=== PATIENT | female | born 1990 | race Caucasian/White ===

== ENCOUNTER 2019-09-25 12:50 | Emergency (ER) | payer MEDICAID ==
[~2019-09-25] VITALS: Ht 160 cm; Wt 59.4 kg
[2019-09-25 13:22] VITALS: BP 132/80
[2019-09-25] MEDS ORDERED: PENI500T2 PO (14:15)
[2019-09-25] MEDS ORDERED: IBUP-1984 PO (14:15)
== END 2019-09-25 14:30 | disposition home or self-care (01) ==
LOC: ER 12:50
DX: K02.9 Dental caries, unspecified (principal); K08.89 Other specified disorders of teeth and supporting structures; Z79.899 Other long term (current) drug therapy
CPT/HCPCS: 99283

== ENCOUNTER 2020-10-02 17:20 | Emergency (ER) | payer MEDICAID ==
[~2020-10-02] VITALS: Ht 160 cm; Wt 61.4 kg
[2020-10-02 17:29] VITALS: BP 135/96
[2020-10-03] MEDS ORDERED: AMOX-422 PO (02:08)
[2020-10-03] MEDS ORDERED: HYDR-3965 PO ×2 (02:10→10:15)
== END 2020-10-02 19:55 | disposition left against medical advice (07) ==
LOC: ER 17:21
DX: R68.84 Jaw pain (principal); Z53.21 Procedure and treatment not carried out due to patient leaving prior to being seen by health care provider

== ENCOUNTER 2020-10-03 01:32 | Emergency (ER) | payer BC, MEDICAID ==
[~2020-10-03] VITALS: Ht 160 cm; Wt 61.0 kg
[2020-10-03 01:38] VITALS: BP 130/92
[2020-10-03] MEDS ORDERED: amox tr/potassium clavulanate 875/125mg TAB PO ONE (02:05)
[2020-10-03] MEDS ORDERED: AMOX-422 PO (02:08)
[2020-10-03] MEDS ORDERED: HYDR-3965 PO ×2 (02:10→10:15)
== END 2020-10-03 02:24 | disposition home or self-care (01) ==
LOC: ER 01:33
DX: K02.9 Dental caries, unspecified (principal); F17.210 Nicotine dependence, cigarettes, uncomplicated; Z79.899 Other long term (current) drug therapy
CPT/HCPCS: 99283

== ENCOUNTER 2020-10-03 08:53 | Emergency (ER) | payer BC, MEDICAID ==
[~2020-10-03] VITALS: Ht 160 cm; Wt 61.4 kg
[~2020-10-03 08:53] MED LIST: AMOX-422 PO; HYDR-3965 PO
[2020-10-03 08:58] VITALS: BP 113/83
[2020-10-03] MEDS ORDERED: HYDR-3965 PO (10:15)
== END 2020-10-03 09:22 | disposition home or self-care (01) ==
LOC: ER 08:55
DX: K02.9 Dental caries, unspecified (principal)
CPT/HCPCS: 99283